=== PATIENT | male | born 1990 | race Caucasian/White ===

== ENCOUNTER 2016-12-03 11:51 | Outpatient (CLI) | payer OTHER ==
[2015-02-06 20:58] VITALS: BP 124/80
[2016-12-03 12:26] LABS: BASOPHILS % 1.1 (0.0-1.5); EOSINOPHILS % 1.9 % (0.0-6.8); MEAN CORPUSCULAR HEMOGLOBIN 31.6 pg (28.0-34.0); MONOCYTES % 6.3 % (0.0-11.0); NEUTROPHILS # 4.7 # k/uL (1.4-7.7)
--- NOTE | 2016-12-03 15:46 | Diagnostic Imaging Report ---
RAGINI HAYNES [facility] [address] [facility] [address] [address] Report Submission Date: Dec 03, 2016 1:01:41 PM CDT Patient Study Name: PALOMA HUTCHISON Date: Dec 03, 2016 12:15:05 PM CDT Modality Type: CT\SR Gender: M Description: CT ABD & PELVIS W/ CON : 88 Institution: [facility] Physician: RAGINI HAYNES Examination: CT Abdomen/pelvis History: Right lower quadrant discomfort Comparison exams: None available Technique: CT Abdomen/pelvis without contrast protocol. Findings: Liver, spleen, adrenal glands, kidneys, pancreas and gallbladder are without irregularity. No gallstone. No renal calcifications. Ureters are nondilated in their course of through abdomen and pelvis. No central calcification. Abdominal aorta without peripheral atherosclerotic disease. No abnormal dilation. Bowel without contrast limiting evaluation. No evidence for acute mesenteric inflammation or free air. Stool throughout the large bowel limiting sensitivity. Appendix is identified and is without inflammatory changes. Osseous structures are appropriate for age. Lung bases without infiltrate. Impression: No abdominal mass or acute inflammatory process. Appendix is visualized and is without inflammatory changes. No abnormal bowel dilation. No abnormal free fluid collections. Electronically signed on Dec 03, 2016 1:01:41 PM CDT by: Hussain CHAHAL
== END 2016-12-03 11:53 ==
LOC: RAD 11:51
PROVIDERS: ATTEND Physician Assistant
DX: R10.31 Right lower quadrant pain (principal)
CPT/HCPCS: 36415; 74177; 85025; Q9966